=== PATIENT | female | born 1975 | race African-American/Black ===

== ENCOUNTER 2021-02-27 13:34 | Observation (INO) ==
[2021-02-27] MEDS ORDERED: CeFAZolin Syr 3,000MG/30 ML 3,000 MG/30 ML SYRINGE IVPB ONE (13:54)
[2021-02-27] MEDS ORDERED: Ringers Solution, Lactated 1,000 ML IVC SCH ×2 (14:00→14:15)
[2021-02-27] MEDS ORDERED: *HR* OxyCODONE Immed Rel 5 MG TABLET PO PRN ×2 (14:09→20:01)
[2021-02-27] MEDS ORDERED: Acetaminophen IV 1,000 MG/100 ML BAG IVPB PRN (14:09)
[2021-02-27] MEDS ORDERED: Ondansetron 4 MG/2 ML VIAL IVP PRN ×2 (14:09→20:01)
[2021-02-27] MEDS ORDERED: *HR* HYDROmorphone PF 0.5 MG/0.5 ML SYRINGE IVP PRN (14:09)
[2021-02-27] MEDS ORDERED: *HR* Succinylcholine 200 MG/10 ML VIAL IVP ONE (15:31)
[2021-02-27] MEDS ORDERED: *HR* Rocuronium Bromide 50 MG/5 ML VIAL ONE (15:31)
[2021-02-27] MEDS ORDERED: Ondansetron 4 MG/2 ML VIAL ONE (15:31)
[2021-02-27] MEDS ORDERED: Lidocaine -MPF 2% 2 ML VIAL ONE ×2 (15:31→17:56)
[2021-02-27] MEDS ORDERED: Lidocaine HCL 4 ML Topical Solution (Laryng-O-Jet Kit Sterile Pak) TP ONE (15:31)
[2021-02-27] MEDS ORDERED: *HR* Midazolam HCl 2 MG/2 ML VIAL ONE (15:34)
[2021-02-27] MEDS ORDERED: *HR* FentaNYL (PF) 100 MCG/2 ML VIAL ONE (15:34)
[2021-02-27] MEDS ORDERED: *HR* Propofol 200 MG/20 ML VIAL IVP ONE (15:34)
[2021-02-27] MEDS ORDERED: Bacitracin 50,000 UNIT, Polymyxin B Sulfate 500,000 UNIT, Sodium Chloride IRRigation 1,... IR ONE (17:00)
[2021-02-27] MEDS ORDERED: *HR* HYDROMORPHONE 2 MG/ML VIAL ONE (17:54)
[2021-02-27] MEDS ORDERED: Ketorolac 30 MG/ML VIAL ONE (18:46)
[2021-02-27] MEDS ORDERED: Naloxone 0.4 MG/ML INJ IVP PRN (20:01)
[2021-02-27] MEDS ORDERED: *HR* HYDROcodone/Acet 5/325 mg TABLET PO PRN (20:01)
[2021-02-27] MEDS ORDERED: Ibuprofen 800 MG TABLET PO PRN (20:01)
[2021-02-27] MEDS: Ringers Solution, Lactated 1,000 ML IVC SCH (20:20)
[2021-02-27] MEDS: CeFAZolin 2 GM/120 ML BAG IVPB SCH (23:19)
[2021-02-28] MEDS: Ringers Solution, Lactated 1,000 ML IVC SCH ×2 (03:26→16:16)
[2021-02-28] MEDS: CeFAZolin 2 GM/120 ML BAG IVPB SCH (08:55)
[2021-02-28] MEDS: Acetaminophen 325 MG TABLET PO PRN ×3 (08:55→23:08)
[2021-02-28] MEDS ORDERED: Ondansetron 4 MG/2 ML VIAL IVP PRN (09:56)
[2021-03-01] MEDS: Ringers Solution, Lactated 1,000 ML IVC SCH (02:01)
[2021-03-01] MEDS: Acetaminophen 325 MG TABLET PO PRN (07:49)
[2021-03-01] MEDS ORDERED: tiZANidine 4 MG TABLET PO ONE (07:51)
[2021-03-01 08:43] VITALS: BP 123/76
== END 2021-03-01 11:48 | disposition home or self-care (01) ==
LOC: SAMDAY 13:34 → 3NENU 13:34
PROVIDERS: ADMIT Orthopaedic Surgery Orthopaedic Surgery of the Spine; ATTEND Orthopaedic Surgery Orthopaedic Surgery of the Spine